=== PATIENT | female | born 1945 | race Caucasian/White ===

== ENCOUNTER 2016-09-18 17:47 | Inpatient (IN) ==
--- NOTE | 2016-09-18 19:07 | Orthopedic History & Physical ---
Orthopedic HPI - HPI Elements left distal other Injury: Yes (fall at senior living 09/14/16) Pain: stabbing, sharp Onset: sudden Radiating: No Severity: moderate Duration: several days How Often Does Pain Occur: constant Aggrevated by: all activity Associated Symptoms: weakness, swelling, no numbness Treatments Tried: pain medications, rest, immobilization X-ray Findings: Other (supracondylar fracture to left distal femur, modest displacement) Recommendation: other (ORIF 09/19/16 with lateral plate and screws) - HPI Comments This is a 71 year old female who is a patient of Dr. Enrique's. Harinder Ortiz has spoken with Dr. Enrique regarding this patient. She had a fall at a senior living 09/14/16. Dr. Enrique was contacted and a mobile 2 view of the distal femur was taken revealing a supra-condylar acute fracture of the left distal femur with modest displacement. Dr. Bermudez transferred here to [facility] in [place] were left hip X-rays were taken. The hip X rays were negative and the patient was returned to the senior living. Unfortunately Dr. Enrique was not contacted about this transfer. As soon as he was made aware he contacted [facility] for further evaluation and management. The patient is presently confused and not able to provide and adequate history. Medications Home Medications Medication Instructions Recorded Confirmed Type Acetaminophen [Tylenol] 2 tab PO Q4HR PRN #1 03/02/15 History Albuterol Sulfate [Proventil Hfa] 2 puff INH Q4H #0 inhaler 03/02/15 History Aspirin 81 mg PO DAILY #0 tab 03/02/15 History Bisacodyl 1 supp RECTALLY DAILY PRN #0 supp 03/02/15 History Carbamide Peroxide [Debrox] 4 drop EACH EAR DAILY PRN #0 drop 03/02/15 History Cetirizine HCl [Zyrtec] 10 mg PO DAILY #0 tab 03/02/15 History Diclofenac Sodium [Voltaren] 1 applic TOP Q6H #1 tub 03/02/15 History Divalproex Sodium [Depakote ER] 1 tab PO BID #0 tab 03/02/15 History Docusate Sodium [Colace] 100 mg PO BID #0 cap 03/02/15 History Famotidine [Pepcid] 20 mg PO DAILY #0 tab 03/02/15 History Fluticasone Nasal [place] [Flonase] 2 spray EA NOSTRIL DAILY #0 ml 03/02/15 History Fluticasone/Salmeterol [Advair 1 puff ORAL INH RTBID #0 inhaler 03/02/15 History 250-50 Diskus] Furosemide [Lasix] 20 mg PO DAILY PRN #0 tab 03/02/15 History Gabapentin 200 mg PO TID #0 cap 03/02/15 History Hydrocodone/Acetaminophen ([place] 1 tab PO Q6H PRN #0 tab 03/02/15 History 5-325 Tablet) Lactulose 10 g PO DAILY #1 ml 03/02/15 History Magnesium Hydroxide [Milk of 50 ml PO Q3DAY PRN #0 03/02/15 History Magnesia] Menthol/Zinc Oxide [Gold [place] 1 applic TOP PRN #1 pwd 03/02/15 History Medicated Body Powd] Multivit,Tx with Iron,Minerals 1 tab PO DAILY #1 03/02/15 History [Therems-M] Nystatin Ointment [Mycostatin] 1 applic TOP TWICEDAILY #1 03/02/15 History Ondansetron HCl [Zofran] 4 mg PO Q6H PRN #0 tab 03/02/15 History Oxybutynin Liq [Ditropan Liq] 5 mg PO TID #0 ml 03/02/15 History Polyethylene Glycol 3350 [Miralax] 17 g PO DAILY PRN #1 bottle 03/02/15 History Promethazine HCl 25 mg PO Q6H PRN #0 03/02/15 History Sennosides/Docusate Sodium [Senna 2 tab PO BID #0 03/02/15 History S Tablet] Spironolactone [Aldactone] 25 mg PO QOD #0 tab 03/02/15 History Tiotropium [place] [Spiriva] 1 puff ORAL INH DAILY #0 inhaler 03/02/15 History Tramadol HCl 100 mg PO TID #0 tab 03/02/15 History Zinc Oxide 1 applic TOP PRN #1 03/02/15 History diphenhydrAMINE HCl [Benadryl] 2 cap PO Q8H PRN #1 cap 03/02/15 History diphenhydrAMINE HCl [Benadryl] 25 mg PO Q8H #1 cap 03/02/15 History guaiFENesin [Guaifenesin] 10 ml PO Q6H PRN #0 03/02/15 History predniSONE [Prednisone] 5 mg PO WB #1 tab 03/02/15 History Allergies Allergy/AdvReac Type Severity Reaction Status Date / Time Cephalosporins Allergy Unknown Unverified 03/01/15 15:30 meperidine Allergy Unknown Unverified 03/01/15 15:29 nitrofurantoin Allergy Unknown Unverified 03/01/15 15:29 Penicillins Allergy Unknown Unverified 03/01/15 15:30 sulfadiazine Allergy Unknown Unverified 03/01/15 15:30 Orthopedic Exam Vital signs: Temp Pulse Resp BP Pulse Ox 98.9 F 86 16 109/66 92 09/18/16 18:48 09/18/16 18:48 09/18/16 18:48 09/18/16 18:48 09/18/16 18:48 - Constitutional General Appearance: Present: alert - Respiratory Exam Present: non-labored - Cardiovascular Exam Present: pedal pulses intact Capillary Refill: < 2-3 Seconds - Abdominal Exam Present: soft - Extremities Exam Present: edema, pulses intact, tenderness (distal left femur). Absent: normal capillary refill - Integumentary Exam Present: pink, warm, dry, intact, bruising - Lymphatic Lymphatic: Absent: adenopathy - Neurological Exam Present: intact to light touch, no deficits - Psychiatric Exam Present: alert, other (confused) Orthopedic Assessment and Plan (1) Fracture of femur, distal, left, closed Status: Acute Qualifiers: Encounter type: initial encounter Assessment and Plan: reassess with Ap/lateral films Dr. Arcos is anticipating surgery tomorrow 09/18/16 with lateral plate and screws NPO after midnight narcotics for pain management. hospitalist for medical management and pre operative clearance Hospital Course Summary Disclaimer: The visit summary below is not to be considered part of the above Progress Note.
[2016-09-18] MEDS ORDERED: DIVALPROEX 125 MG TABLET PO SCH (22:33)
[2016-09-18] MEDS ORDERED: FentaNYL 100 MCG/2 ML INJECTION IVP PRN (22:38)
--- NOTE | 2016-09-18 23:41 | Consult Note ---
Consult Information - Data of Consult Requesting Physician: Florentino Arcos MD Primary Care Provider: Driss Enrique DO Family Provider: Driss Enrique DO - Consult Narrative Reason for consult: medical eval for surgery History of present illness: Please note that the patient was seen via telemedicine with nursing assistance on 09/18/2016 This is a 71 year old female who is a patient of Dr. Enrique's with h/o hypothyroidism, MDD, but no CAD/CHF/CVA/DM2.She had a fall at a long term . Dr. Enrique was contacted and a mobile 2 view of the distal femur was taken revealing a supra-condylar acute fracture of the left distal femur with modest displacement. Dr. Bermudez transferred here to [facility] in [place] were left hip X-rays were taken. The hip X rays were negative and the patient was returned to the long term. Unfortunately Dr. Enrique was not contacted about this transfer. As soon as he was made aware he contacted [facility] for further evaluation and management. The patient recognizes inability to effectively walk the last day with no nausea , sob, CP, abd pain. pain in L hip is 7/10 at rest with planned surgery tomorrow. 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 Other Yes: overactive bladder Osteoarthritis Yes Other Musculoskeletal Yes: joint stiffness, muscle weakness Bipolar Disorder Yes Depression Yes Family History: CAD in mother who is - Social History Smoking status: Unknown if ever smoked Medications Home Medications Medication Instructions Recorded Confirmed Type Acetaminophen [Tylenol] 2 tab PO Q4HR PRN #1 03/02/15 09/18/16 History Aspirin 81 mg PO DAILY #0 tab 03/02/15 09/18/16 History Carbamide Peroxide [Debrox] 4 drop EACH EAR DAILY PRN #0 drop 03/02/15 09/18/16 History Diclofenac Sodium [Voltaren] 1 applic TOP Q6H PRN #1 tub 03/02/15 09/18/16 History Famotidine [Pepcid] 20 mg PO DAILY #0 tab 03/02/15 09/18/16 History Lactulose 10 g PO DAILY PRN #1 ml 03/02/15 09/18/16 History Magnesium Hydroxide [Milk of 30 ml PO Q3DAY PRN #0 03/02/15 09/18/16 History Magnesia] Menthol/Zinc Oxide [Gold [place] 1 applic TOP PRN PRN #1 pwd 03/02/15 09/18/16 History Medicated Body Powd] Multivit,Tx with Iron,Minerals 1 tab PO DAILY #1 03/02/15 09/18/16 History [Therems-M] Ondansetron HCl [Zofran] 4 mg PO Q6H PRN #0 tab 03/02/15 09/18/16 History Polyethylene Glycol 3350 [Miralax] 17 g PO DAILY PRN #1 bottle 03/02/15 History Sennosides/Docusate Sodium [Senna 2 tab PO BID #0 03/02/15 09/18/16 History S Tablet] Spironolactone [Aldactone] 25 mg PO DAILY #0 tab 03/02/15 09/18/16 History Tramadol HCl 100 mg PO QID #0 tab 03/02/15 09/18/16 History guaiFENesin [Guaifenesin] 5 ml PO Q6H PRN #0 03/02/15 09/18/16 History Acetaminophen 325 mg PO Q5H PRN 09/18/16 09/18/16 History Albuterol Inhaler [Ventolin Hfa] 2 puff ORAL INH Q4HR PRN 09/18/16 09/18/16 History Buspirone [Buspar] 5 mg PO BID 09/18/16 09/18/16 History Divalproex Sodium 6 cap PO BID 09/18/16 09/18/16 History Duloxetine [Cymbalta] 1 cap PO DAILY 09/18/16 09/18/16 History Fluticasone Propionate [Flonase 2 spray INH DAILY 09/18/16 09/18/16 History Allergy Relief] Fluticasone Propionate [Flovent 1 puff INH BID 09/18/16 09/18/16 History Diskus] Gabapentin 300 mg PO TID 09/18/16 09/18/16 History Hydrocodone/APAP 10/325 [[place] 1 tab PO Q6H 09/18/16 09/18/16 History 10/325] Levothyroxine Tab [Synthroid] 125 mcg PO ACB 09/18/16 09/18/16 History Loratadine [Claritin] 10 mg PO DAILY PRN 09/18/16 09/18/16 History Mag Hydrox/Aluminum Hyd/Simeth 15 ml PO Q4H PRN 09/18/16 09/18/16 History [Mag-Al Plus Suspension] Menthol [Biofreeze] 1 applic TP TID PRN 09/18/16 09/18/16 History Oxybutynin Chloride [Ditropan Xl] 5 mg PO DAILY 09/18/16 09/18/16 History Umeclidinium Brm/Vilanterol Tr 1 each IH DAILY 09/18/16 09/18/16 History [Anoro Ellipta 62.5-25 Mcg INH] Zinc Oxide [Desitin] 1 applic TP PRN PRN 09/18/16 09/18/16 History Allergies Allergy/AdvReac Type Severity Reaction Status Date / Time Cephalosporins Allergy Unknown Verified 09/18/16 20:03 meperidine Allergy Unknown Verified 09/18/16 20:03 nitrofurantoin Allergy Unknown Verified 09/18/16 20:03 Penicillins Allergy Unknown Verified 09/18/16 20:03 sulfadiazine Allergy Unknown Verified 09/18/16 20:03 Exam Vital Signs: Temp Pulse Resp BP Pulse Ox 98.9 F 84 16 109/66 94 09/18/16 18:48 09/18/16 21:54 09/18/16 21:54 09/18/16 18:48 09/18/16 21:54 Telemetry Rhythm: Sinus Rhythm Height: 1.46 m Weight: 85.9 kg Body Mass Index: 40.1 - Constitutional Present: no acute distress, well nourished, disheveled - Routine HEENT Exam Head: Present: normocephalic, atraumatic Eye: Present: EOMI - Routine Neck Exam Present: full ROM. Absent: JVD - Routine Respiratory Exam Present: CTA bilaterally. Absent: accessory muscle use - Routine Cardiovascular Exam Present: RRR, S1, S2, no murmur - Routine Abdominal Exam Present: soft, normoactive bowel sounds. Absent: tenderness - Routine Skin Exam Comments: no bruising over hip - Routine Neurological Exam Present: alert, oriented X3 - Routine Psychiatric Exam Comments: very circumferential thoughts and at time does not focus well Results - Labs CBC & Chem 7: 09/18/16 19:35 09/18/16 19:35 Assessment and Plan (1) Fracture of femur, distal, left, closed Current visit: Yes Status: Acute 09/18/16 23:43 NPO after MN and IVF with revised cardiac risk index 0 and cleared medically for surgery. Vitamin D. 09/18/16 23:43 (2) Hypothyroid Current visit: Yes Status: Acute 09/18/16 23:43 same meds (3) Bipolar 1 disorder Current visit: Yes Status: Acute 09/18/16 23:44 no active hallucinations, but hard to redirect. same meds. (4) GERD (gastroesophageal reflux disease) Current visit: Yes Status: Acute 09/18/16 23:44 PPI as prior Hospital Course Summary Disclaimer: The visit summary below is not to be considered part of the above Progress Note. Sepsis Assessment - Evaluation Sepsis screening result: No Definite Risk
[2016-09-19] MEDS: NS 1,000 ML IV SCH ×4 (00:39→19:45)
[2016-09-19] MEDS: GABAPENTIN 300 MG CAPSULE PO SCH ×4 (00:41→20:49)
[2016-09-19] MEDS: TRAMADOL 50 MG TABLET PO SCH ×5 (00:42→20:47)
--- NOTE | 2016-09-19 07:34 | Orthopedic Progress Note ---
Date: Subjective/Severity of Illness: Ayala is getting repeat knee X-rays this AM, she is hurting secondary to this. Repeat films were needed for surgical planning. Otherwise, she has no new complaints. Surgery planned for later today. Orthopedic Objective Vital signs: Temp Pulse Resp BP Pulse Ox 98.9 F 74 16 121/70 92 09/19/16 00:45 09/19/16 00:45 09/19/16 00:45 09/19/16 00:45 09/19/16 00:45 Height and Weight: Height 4 ft 9.6 in Weight 189 lb 6.033 oz Body Mass Index 40.1 - Constitutional General Appearance: Present: alert, no acute distress - Respiratory Exam Present: non-labored - Cardiovascular Exam Present: pedal pulses intact Capillary Refill: < 2-3 Seconds - Abdominal Exam Present: soft - Extremities Exam Present: edema, pulses intact, tenderness (distal left femur). Absent: normal capillary refill Comments: left leg externally rotated - Integumentary Exam Present: pink, warm, dry, intact, bruising - Lymphatic Lymphatic: Absent: adenopathy - Neurological Exam Present: intact to light touch, no deficits - Labs Result Diagrams: 09/18/16 19:35 09/18/16 19:35 Abnormal lab results 09/18/16 09/18/16 09/18/16 Range/Units 19:35 19:35 21:00 RBC 3.91 L (4.00-5.20) M/MM3 MPV 9.3 L (9.4-12.4) UM3 Immature Gran % (Auto) 1.5 H (0.0-0.5) % Lymph % (Auto) 18.5 L (23-45) % Eos % (Auto) 7.0 H (0-4) % Eos # 0.6 H (0-0.5) T/MM3 Abs Immat Gran (auto) 0.14 H (0.00-0.03) T/MM3 Carbon Dioxide 31 H (22-30) MEQ/L Ur Specific [place] 1.010 L (1.015-1.025) Urine Ketones Trace A (NEGATIVE) H & H 09/18/16 Range/Units 19:35 Hgb 12.4 (12-16) GM/DL Hct 38.6 (36-46) % Coagulation 09/18/16 Range/Units 19:35 INR 1.09 (0.99-1.21) Orthopedic Assessment and Plan (1) Fracture of femur, distal, left, closed Status: Acute Qualifiers: Encounter type: initial encounter Assessment and Plan: keep NPO. to OR later today. (2) Hypothyroid Status: Acute (3) Bipolar 1 disorder Status: Acute (4) GERD (gastroesophageal reflux disease) Status: Acute Hospital Course Summary Disclaimer: The visit summary below is not to be considered part of the above Progress Note.
[2016-09-19] MEDS: LEVOTHYROXINE 125 MCG TABLET PO SCH (08:07)
--- NOTE | 2016-09-19 08:12 | XRay Report ---
Indication: poor previous views, eval fracture PROCEDURE: XR knee LT 2V: Encounter: Initial Comparison: None Findings: Oblique mildly displaced fracture of the distal femur extending into the lateral femoral condyle. No additional acute fracture or dislocation seen. Moderate joint effusion. Mild bony demineralization. Impression: Closed posttraumatic distal femoral fracture. .
--- NOTE | 2016-09-19 08:13 | XRay Report ---
Indication: pre operative, history COPD PROCEDURE: XR chest 1V: Encounter: Initial Comparison: March 02, 2015 Findings: Findings of emphysema. Increased interstitial markings diffusely without focal lobar consolidation. No pneumothorax. Elevated right hemidiaphragm. Heart size and mediastinal contours are stable. Pulmonary vascularity is indistinct. Numerous surgical clips in the central and upper abdomen. Impression: Emphysema with increased interstitial markings could all relate to chronic lung disease although superimposed mild pulmonary edema cannot be entirely excluded. .
--- NOTE | 2016-09-19 08:13 | XRay Report ---
Indication: fracture PROCEDURE: XR femur LT 2V: Encounter: Initial Comparison: None Findings: Oblique mildly displaced fracture of the distal femur. Avascular process of the femoral head with articular surface collapse and degenerative change in the hip joint. Mild bony demineralization. Impression: Closed posttraumatic distal femoral fracture. .
[2016-09-19] MEDS: MORPHINE SULFATE 2 MG SYRINGE IVP PRN ×2 (08:29→23:56)
--- NOTE | 2016-09-19 08:49 | Progress Note ---
<Maria Teresa Luna V - Last Filed: 09/19/16 08:38> Subjective: Ayala is seen this morning in follow up for medical consultation for medical management. She was admitted under orthopedic care for a left distal femoral fracture. She complains of having moderate pain to the left distal upper leg above the knee. Denies having chest pain, shortness of breath or GI complaints. Nursing reports she had a brief decrease in O2 sats to 88% and she was placed on 1 liter of oxygen. She is in no acute distress. She is noted to have dry mouth and feels that she has denture cream stuck to the top of her mouth. BP 126/62. Objective Vital signs: Temp Pulse Resp BP Pulse Ox 98.4 F 84 16 126/62 88 L 09/19/16 07:32 09/19/16 07:32 09/19/16 07:32 09/19/16 07:32 09/19/16 07:32 Weight: 85.2 kg - Constitutional Present: no acute distress, well nourished, disheveled - Routine HEENT Exam Head: Present: normocephalic Eye: Present: EOMI, PERRL ENT: Present: mucous membranes dry - Routine Respiratory Exam Present: CTA bilaterally - Routine Cardiovascular Exam Present: RRR, S1, S2 - Routine Abdominal Exam Present: soft, normoactive bowel sounds - Routine Extremities Exam Present: tenderness (Left knee, distal upper thigh) - Routine Skin Exam Present: intact, warm - Routine Neurological Exam Present: alert, oriented X3, CN II-XII intact - Routine Psychiatric Exam Present: normal affect, normal thought process Results - Labs CBC & Chem 7: 09/19/16 07:52 09/19/16 07:52 Assessment and Plan (1) Fracture of femur, distal, left, closed Current visit: Yes Status: Acute 09/18/16 23:43 NPO after MN and IVF with revised cardiac risk index 0 and cleared medically for surgery. Vitamin D. 09/18/16 23:43 (2) Hypothyroid Current visit: Yes Status: Acute 09/18/16 23:43 same meds (3) Bipolar 1 disorder Current visit: Yes Status: Acute 09/18/16 23:44 no active hallucinations, but hard to redirect. same meds. (4) GERD (gastroesophageal reflux disease) Current visit: Yes Status: Acute 09/18/16 23:44 PPI as prior (5) Anxiety Current visit: Yes Status: Chronic (6) History of COPD Current visit: Yes Status: Chronic Assessment and Plan: 09/19/16 Stuart Cai appears medically stable for surgery. Did discuss with her the importance of having surgery to relieve her pain and allow appropriate healing. Ongoing orthopedic care as per Dr Reinaldo PATEL. Add Morphine 2 mg IV every 2 hours as needed for pain Currently she is NPO. Will need to resume all PO home meds post-op Monitor oxygen saturations for further episodes of hypoxia. SCD to RLE for DVT prophylaxis Catheter to dependent drainage Will check CBC and BMP tomorrow morning to follow this operative blood counts, renal function. Electrodes. At time of discharge medical care will return to primary care provider, Dr. Enrique Sepsis Assessment - Evaluation Sepsis screening result: No Definite Risk Hospital Course Summary Disclaimer: The visit summary below is not to be considered part of the above Progress Note. Hospital Course: 09/19/16 08:56 Stuart Cai appears medically stable for surgery. Did discuss with her the importance of having surgery to relieve her pain and allow appropriate healing. Ongoing orthopedic care as per Dr Reinaldo PATEL. Add Morphine 2 mg IV every 2 hours as needed for pain Currently she is NPO. Will need to resume all PO home meds post-op Monitor oxygen saturations for further episodes of hypoxia. SCD to RLE for DVT prophylaxis Catheter to dependent drainage Will check CBC and BMP tomorrow morning to follow this operative blood counts, renal function. Electrodes. At time of discharge medical care will return to primary care provider, Dr. Enrique <Carrie Estrada - Last Filed: 09/19/16 14:44> Objective Vital signs: Temp Pulse Resp BP Pulse Ox 99.3 F 78 18 144/74 H 94 09/19/16 14:00 09/19/16 14:00 09/19/16 14:00 09/19/16 14:00 09/19/16 14:00 Results - Labs CBC & Chem 7: 09/19/16 07:52 09/19/16 07:52 Assessment and Plan (1) Fracture of femur, distal, left, closed Current visit: Yes Status: Acute (2) Hypothyroid Current visit: Yes Status: Acute (3) Bipolar 1 disorder Current visit: Yes Status: Acute (4) GERD (gastroesophageal reflux disease) Current visit: Yes Status: Acute (5) Anxiety Current visit: Yes Status: Chronic (6) History of COPD Current visit: Yes Status: Chronic Assessment and Plan: Pt doing well this am, reports she has mild pain but overall she's okay. Denies any cp, sob, n/v/d, f/c. Pt is planning to have surgery later this evening. Pt is medically stable. Ortho is following. Hospital Course Summary Disclaimer: The visit summary below is not to be considered part of the above Progress Note.
[2016-09-19] MEDS: DIVALPROEX 250 MG TABLET PO SCH ×2 (10:57→20:47)
[2016-09-19] MEDS: DULOXETINE 60 MG CAPSULE PO SCH (10:57)
[2016-09-19] MEDS: BUSPIRONE 5 MG TABLET PO SCH ×2 (10:57→20:47)
[2016-09-19] MEDS: FAMOTIDINE 20 MG TABLET PO SCH (10:58)
--- NOTE | 2016-09-19 14:21 | Anesthesia Preoperative Report ---
Anesthesia Preoperative Record - Date and Time Date: 09/19/16 Preoperative Diagnosis: Left Distal Femur Fracture Proposed Procedure: ORIF of left femur NPO Since Date: 09/19/16 NPO Since Time: 00:00 Allergies/Adverse Reactions: Allergies Allergy/AdvReac Type Severity Reaction Status Date / Time Cephalosporins Allergy Unknown Verified 09/18/16 20:03 meperidine Allergy Unknown Verified 09/18/16 20:03 nitrofurantoin Allergy Unknown Verified 09/18/16 20:03 Penicillins Allergy Unknown Verified 09/18/16 20:03 sulfadiazine Allergy Unknown Verified 09/18/16 20:03 - Vital Signs Vital Signs: Temp Pulse Resp BP Pulse Ox 99.3 F 78 18 144/74 H 94 09/19/16 14:00 09/19/16 14:00 09/19/16 14:00 09/19/16 14:00 09/19/16 14:00 Height and Weight: Height 1.46 m Weight 85.2 kg Body Mass Index 40.1 - Medications Inpatient Medications: Current Medications Buspirone HCl (Buspar) 5 mg PO BID [facility] Last Admin: 09/19/16 10:57 Dose: Not Given Divalproex Sodium (Depakote) 750 mg PO BID [facility] Last Admin: 09/19/16 10:57 Dose: Not Given Duloxetine HCl (Cymbalta) 60 mg PO DAILY [facility] Last Admin: 09/19/16 10:57 Dose: Not Given Ergocalciferol (Vitamin D-2) 50,000 unit PO Q7D [facility] Famotidine (Pepcid) 20 mg PO DAILY [facility] Last Admin: 09/19/16 10:58 Dose: Not Given Gabapentin (Neurontin) 300 mg PO TID [facility] Last Admin: 09/19/16 10:57 Dose: Not Given Sodium Chloride (Normal Saline) 1,000 mls @ 100 mls/hr IV .Q10H [facility] Last Admin: 09/19/16 10:55 Dose: 100 mls/hr Levothyroxine Sodium (Synthroid) 125 mcg PO ACB [facility] Last Admin: 09/19/16 08:07 Dose: Not Given Morphine Sulfate (Morphine Sulfate Inj) 2 mg IVP Q2H PRN PRN Reason: Pain Last Admin: 09/19/16 08:29 Dose: 2 mg Tramadol HCl (Ultram) 100 mg PO QID [facility] Last Admin: 09/19/16 14:11 Dose: Not Given Home Medications: Home Medications Medication Instructions Recorded Confirmed Type Acetaminophen [Tylenol] 2 tab PO Q4HR PRN #1 03/02/15 09/18/16 History Aspirin 81 mg PO DAILY #0 tab 03/02/15 09/18/16 History Carbamide Peroxide [Debrox] 4 drop EACH EAR DAILY PRN #0 drop 03/02/15 09/18/16 History Diclofenac Sodium [Voltaren] 1 applic TOP Q6H PRN #1 tub 03/02/15 09/18/16 History Famotidine [Pepcid] 20 mg PO DAILY #0 tab 03/02/15 09/18/16 History Lactulose 10 g PO DAILY PRN #1 ml 03/02/15 09/18/16 History Magnesium Hydroxide [Milk of 30 ml PO Q3DAY PRN #0 03/02/15 09/18/16 History Magnesia] Menthol/Zinc Oxide [Gold Flores 1 applic TOP PRN PRN #1 pwd 03/02/15 09/18/16 History Medicated Body Powd] Multivit,Tx with Iron,Minerals 1 tab PO DAILY #1 03/02/15 09/18/16 History [Therems-M] Ondansetron HCl [Zofran] 4 mg PO Q6H PRN #0 tab 03/02/15 09/18/16 History Polyethylene Glycol 3350 [Miralax] 17 g PO DAILY PRN #1 bottle 03/02/15 History Sennosides/Docusate Sodium [Senna 2 tab PO BID #0 03/02/15 09/18/16 History S Tablet] Spironolactone [Aldactone] 25 mg PO DAILY #0 tab 03/02/15 09/18/16 History Tramadol HCl 100 mg PO QID #0 tab 03/02/15 09/18/16 History guaiFENesin [Guaifenesin] 5 ml PO Q6H PRN #0 03/02/15 09/18/16 History Acetaminophen 325 mg PO Q5H PRN 09/18/16 09/18/16 History Albuterol Inhaler [Ventolin Hfa] 2 puff ORAL INH Q4HR PRN 09/18/16 09/18/16 History Buspirone [Buspar] 5 mg PO BID 09/18/16 09/18/16 History Divalproex Sodium 6 cap PO BID 09/18/16 09/18/16 History Duloxetine [Cymbalta] 1 cap PO DAILY 09/18/16 09/18/16 History Fluticasone Propionate [Flonase 2 spray INH DAILY 09/18/16 09/18/16 History Allergy Relief] Fluticasone Propionate [Flovent 1 puff INH BID 09/18/16 09/18/16 History Diskus] Gabapentin 300 mg PO TID 09/18/16 09/18/16 History Hydrocodone/APAP 10/325 [Normal 1 tab PO Q6H 09/18/16 09/18/16 History 10/325] Levothyroxine Tab [Synthroid] 125 mcg PO ACB 09/18/16 09/18/16 History Loratadine [Claritin] 10 mg PO DAILY PRN 09/18/16 09/18/16 History Mag Hydrox/Aluminum Hyd/Simeth 15 ml PO Q4H PRN 09/18/16 09/18/16 History [Mag-Al Plus Suspension] Menthol [Biofreeze] 1 applic TP TID PRN 09/18/16 09/18/16 History Oxybutynin Chloride [Ditropan Xl] 5 mg PO DAILY 09/18/16 09/18/16 History Umeclidinium Brm/Vilanterol Tr 1 each IH DAILY 09/18/16 09/18/16 History [Anoro Ellipta 62.5-25 Mcg INH] Zinc Oxide [Desitin] 1 applic TP PRN PRN 09/18/16 09/18/16 History Is Patient on Beta Anthony?: No - Medical History Respiratory: Reports: Chronic Obstructive Pulmonary Disease (COPD) Renal/Endocrine: Reports: Thyroid Disease - Surgical History Anesthesia Reactions: None Hx Family Anesthesia Reaction: No History of Motion Sickness: No - Social History Smoking Status: Current every day smoker Hx Chewing Tobacco Use: No Second Hand Exposure: No Substance Use Type: does not use Alcohol Intake Frequency: does not drink - Pertinent Findings Laboratory: CBC and BMP 09/19/16 07:52 09/19/16 07:52 BMP 09/18/16 09/19/16 19:35 07:52 Sodium 140 141 Potassium 4.4 4.3 Chloride 99 101 Carbon Dioxide 31 H 30 BUN 16.0 14.0 Creatinine 0.9 0.8 Glucose 82 78 Calcium 9.7 9.4 Urine // Range/Units 21:00 Urine Color Yellow (YELLOW) Urine Clarity Clear Urine pH 7.0 (5.0-8.0) Ur Specific [place] 1.010 L (1.015-1.025) Urine Protein Negative (NEGATIVE) Urine Glucose (UA) Negative (NEGATIVE) EKG Rhythm: Normal Sinus Rhythm - Physical Exam Respiratory Exam: Present: lungs clear Cardiovascular Exam: Present: regular rate and rhythm - Airway Assessment Mallampati Score: II TMD: 3 Fingerbreadths Neck Extension: fair Teeth: upper dentures, lower dentures Overall Assessment: no airway concerns - ASA ASA Score: 3 - Plan Anesthesia: General Inhalation Gases - Discussion Discussion: Discussed risks/options/alternatives of anesthesia and questions answered. Patient consents. Nursing pain assessment noted. Attestation Statement: Prior to the delivery of any anesthetic medication, I examined the patient, developed the plan, obtained the patient's consent and discussed the risk and benefits of the procedure with the patient/guardian. - Additional Information Seen by Anesthesia: Yes
[2016-09-19] MEDS ORDERED: CLINDAMYCIN PREMIX 900 MG/50 ML BAG IV SCH (15:00)
[2016-09-19] MEDS ORDERED: PROPOFOL 500 MG/50 ML VIAL IV ONE (15:04)
[2016-09-19] MEDS ORDERED: FentaNYL 250 MCG/5 ML INJECTION ONE (15:25)
[2016-09-19] MEDS ORDERED: BUPIV 0.25% 30ml/LIDO 1% 30ml MIXTURE IR ONE (16:42)
[2016-09-19] MEDS ORDERED: DESFLURANE 240ml LIQUID IH ONE (16:49)
--- NOTE | 2016-09-19 17:03 | Operative Note ---
- Procedure Date of Admission: 09/19/16 Side: left Preoperative Diagnosis: other (supracondylar distal femoral fracture) Postoperative Diagnosis: Same as preoperative diagnosis. Operation: Closed reduction and cephalomedullary nailing of left supracondylar distal femoral fracture Surgeon: Francisco Arcos MD Proposal Analyst: AMANDA Muhammad Complications: None. Anesthesia: General Inhalation Gases Estimated Blood Loss: See Anesthesia Record. Fluids: Please see Anesthesia Record. Description of Procedure: Mrs. Crisostomo in her left knee were identified and marked in the preoperative holding area. I reviewed with her the indications of surgery as well as risks and benefits and possible complications. Also discussed expected postoperative care. She agreed with this plan. She is brought back to the operating suite and placed supine on the operating table she is placed under general anesthesia and intubated. The left lower joint was prepped and draped in the normal sterile fashion. Fluoroscopic imaging was used throughout the case. Timeout was performed. A trying was placed underneath the knee and fluoroscopic images confirmed a good reduction with just minimal traction on the leg. Bone quality was poor and there is more arthritic changes in the knee. Incision was made anteriorly from the patella to the tibial tubercle. A small medial parapatellar arthrotomy was then performed. The distal femur was opened over a guide dora. I circumferentially reamed to 15 and placed a short 14 mm retrograde supracondylar nail that was 170 mm length. I then used the aiming arm to place 4 distal screws. Aiming arm and then again used to place 2 locking screws proximally from lateral to medial. Again her bone quality was poor we are very happy with reduction in the hardware placement. The arthrotomy wound was thoroughly irrigated with normal saline. I did place and then. All the other poke hole also thoroughly irrigated. The arthrotomy was closed with 2-0 Vicryl followed by running 4-0 Monocryl and skin followed by Dermabond. The poke holes were closed with 2-0 Vicryl and Dermabond. I then took x-rays of her ankle because of complaints of ankle pain before surgery. No fracture identified but she did In the mortise laterally with inversion of the ankle. Difficult to tell if this is acute or chronic issue. We'll make a judgment call clinically after she wakes how to treat her ankle but probably with a brace. She then awoke from general anesthesia and was extubated and taken to the recovery room under the care of anesthesia she tolerated this procedure well and there were no complications.
[2016-09-19] MEDS ORDERED: ONDANSETRON 4 MG/2 ML INJECTION IVP PRN ×2 (17:10→18:54)
[2016-09-19] MEDS ORDERED: METOCLOPRAMIDE 10mg/2ml INJECTION IVP PRN (17:10)
[2016-09-19] MEDS ORDERED: ONDANSETRON 4 MG/2 ML INJECTION ONE (17:13)
[2016-09-19] MEDS ORDERED: DEXAMETHASONE 4 MG/ML INJECTION ONE (17:13)
[2016-09-19] MEDS ORDERED: BUPIVACAINE 0.25% (2.5mg/ml) PF 30ml INJECTION ONE (17:31)
[2016-09-19] MEDS ORDERED: BUPIVACAINE 0.25%/EPI 1:200,000 30ml SDV ONE (17:31)
[2016-09-19] MEDS ORDERED: LIDOCAINE 1% (10mg/ml) 30ml SDV INJ ONE (17:31)
[2016-09-19] MEDS: HYDROMORPHONE 2 MG/ML INJECTION IVP PRN ×2 (18:01→18:15)
[2016-09-19] MEDS ORDERED: SENNA + DOCUSATE TABLET PO PRN (18:54)
[2016-09-19] MEDS ORDERED: NOZIN NASAL SWAB NAS ONE (18:54)
--- NOTE | 2016-09-19 18:55 | Anesthesia Postoperative Note ---
- Date and Time Date: 09/19/16 Time: 18:55 - Status Patient Participated in Evaluation: Patient Participated in Person Vital Signs: Temp Pulse Resp BP Pulse Ox 96.8 F 86 20 129/67 96 09/19/16 17:23 09/19/16 17:55 09/19/16 17:55 09/19/16 17:55 09/19/16 17:55 Respiratory Function: Airway Patent Cardiovascular Function: Regular Pulse EKG Rhythm: Normal Sinus Rhythm Mental Status: Alert and Oriented Pain Intensity: 4 Hydration: Taking PO Fluids Complications During Recover: None Apparent - Follow-Up Instructions Instructions: Per Surgeon
[2016-09-19] MEDS: ENOXAPARIN 40 MG/0.4 ML INJECTION SQ SCH (19:47)
[2016-09-19] MEDS: NOZIN NASAL SWAB NAS SCH (20:46)
[2016-09-19] MEDS: CLINDAMYCIN PREMIX 900 MG/50 ML BAG IV SCH (22:52)
[2016-09-20] MEDS: SALMETEROL ORAL INH SCH ×3 (01:27→19:51)
[2016-09-20] MEDS: FLUTICASONE ORAL INH SCH ×3 (01:27→19:51)
[2016-09-20] MEDS: MORPHINE SULFATE 2 MG SYRINGE IVP PRN ×2 (02:18→07:18)
[2016-09-20] MEDS: NOZIN NASAL SWAB NAS SCH ×3 (02:19→21:12)
[2016-09-20] MEDS: CLINDAMYCIN PREMIX 900 MG/50 ML BAG IV SCH ×2 (04:39→09:13)
[2016-09-20] MEDS: NS 1,000 ML IV SCH ×3 (04:39→18:10)
[2016-09-20] MEDS: LEVOTHYROXINE 125 MCG TABLET PO SCH (06:08)
[2016-09-20] MEDS ORDERED: ERGOCALCIFEROL 50,000 UNIT CAPSULE PO SCH (09:00)
[2016-09-20] MEDS: BUSPIRONE 5 MG TABLET PO SCH ×2 (09:12→21:13)
[2016-09-20] MEDS: DULOXETINE 60 MG CAPSULE PO SCH (09:13)
[2016-09-20] MEDS: FAMOTIDINE 20 MG TABLET PO SCH (09:14)
[2016-09-20] MEDS: TRAMADOL 50 MG TABLET PO SCH ×4 (09:14→21:14)
[2016-09-20] MEDS: FLUTICASONE NASAL SPRAY 50mcg EA NOSTRIL SCH (09:14)
[2016-09-20] MEDS: DIVALPROEX 250 MG TABLET PO SCH ×2 (09:14→21:13)
[2016-09-20] MEDS: GABAPENTIN 300 MG CAPSULE PO SCH ×3 (09:14→21:13)
--- NOTE | 2016-09-20 09:19 | Remote Fluorsocopy Report ---
Indication: DISTAL FEMUR FX PROCEDURE: RF knee LT 3 view: Encounter: Initial Comparison: Left knee radiographs dated September 19, 2016 Findings: Eight fluoroscopic spot images are submitted for interpretation. Images show open reduction and internal fixation of the distal femur fracture with placement of an intramedullary nail and multiple interlocking screws. Alignment of the fracture fragments appears stable. Impression: Fluoroscopy as above. Fluoroscopy time is 27.6 seconds. Fluoroscopy dose is 2990 mRad. .
--- NOTE | 2016-09-20 09:32 | Remote Fluorsocopy Report ---
Indication: LEFT ANKLE PAIN PROCEDURE: RF ankle LT 3 view: Encounter: Initial Comparison: None Findings: Three fluoroscopic spot images show anterior and lateral projections of the left ankle. Impression: Fluoroscopy as above. Fluoroscopy time is 207.6 seconds. Fluoroscopy dose is 2990 mRad. .
--- NOTE | 2016-09-20 10:19 | Progress Note ---
<Maria Teresa Luna V - Last Filed: 09/20/16 10:05> Subjective: Ayala seen this morning in follow-up, status post left distal femur repair. She is alert and oriented, speech is somewhat difficulty to understand as she does not have dentures in. She complains of moderate pain to left upper leg. Polar pack is intact. Hairston cath intact. Objective Vital signs: Temp Pulse Resp BP Pulse Ox 98.8 F 114 H 18 132/81 98 09/20/16 07:39 09/20/16 07:39 09/20/16 09:32 09/20/16 07:39 09/20/16 07:39 Weight: 85.3 kg - Constitutional Present: no acute distress, well nourished, disheveled - Routine HEENT Exam Eye: Present: EOMI, PERRL ENT: Present: mucous membranes dry - Routine Respiratory Exam Present: CTA bilaterally - Routine Cardiovascular Exam Present: RRR, S1, S2 - Routine Abdominal Exam Present: soft, normoactive bowel sounds, non distended, non tender - Routine Extremities Exam Comments: Left thigh/knee pain- Postop - Routine Back/Spine/Pelvis Exam Back/Spine: Present: full ROM - Routine Skin Exam Present: intact, warm - Routine Neurological Exam Present: alert, oriented X3, CN II-XII intact Results - Labs CBC & Chem 7: 09/20/16 04:28 09/20/16 04:28 Assessment and Plan (1) Fracture of femur, distal, left, closed Current visit: Yes Status: Acute 09/18/16 23:43 NPO after MN and IVF with revised cardiac risk index 0 and cleared medically for surgery. Vitamin D. 09/18/16 23:43 (2) Hypothyroid Current visit: Yes Status: Acute 09/18/16 23:43 same meds (3) Bipolar 1 disorder Current visit: Yes Status: Acute 09/18/16 23:44 no active hallucinations, but hard to redirect. same meds. (4) GERD (gastroesophageal reflux disease) Current visit: Yes Status: Acute 09/18/16 23:44 PPI as prior (5) Anxiety Current visit: Yes Status: Chronic (6) History of COPD Current visit: Yes Status: Chronic Assessment and Plan: 09/20/16 Overall is doing well today as it is day 1 post-op Consult to PT and OT for assistance with strengthening and mobility. Hopeful to get patient up out of bed today. Continue to work on pain control, hopeful to move away from IV pain medications. Continue with tramadol. CBC and BMP today are stable. Senna plus scheduled, will add MiraLAX daily for postoperative bowel motivation. Can likely work on bladder retraining with Hairston catheter later today. Depending on how patient does getting up. Lovenox subcutaneous daily for postoperative anticoagulation. She will likely need this for 30 days. Ortho management as per Dr Arcos. Overall medically stable Will discuss further plan with attending, Dr Estrada. Sepsis Assessment - Evaluation Sepsis screening result: No Definite Risk Hospital Course Summary Disclaimer: The visit summary below is not to be considered part of the above Progress Note. Hospital Course: 09/19/16 08:56 Medically Ayala appears medically stable for surgery. Did discuss with her the importance of having surgery to relieve her pain and allow appropriate healing. Ongoing orthopedic care as per Dr Arcos and Amando PATEL. Add Morphine 2 mg IV every 2 hours as needed for pain Currently she is NPO. Will need to resume all PO home meds post-op Monitor oxygen saturations for further episodes of hypoxia. SCD to RLE for DVT prophylaxis Catheter to dependent drainage Will check CBC and BMP tomorrow morning to follow this operative blood counts, renal function. Electrodes. At time of discharge medical care will return to primary care provider, Dr. Enrique 09/20/16 Overall is doing well today as it is day 1 post-op Consult to PT and OT for assistance with strengthening and mobility. Hopeful to get patient up out of bed today. Continue to work on pain control, hopeful to move away from IV pain medications. Continue with tramadol. CBC and BMP today are stable. Senna plus scheduled, will add MiraLAX daily for postoperative bowel motivation. Can likely work on bladder retraining with Hairston catheter later today. Depending on how patient does getting up. Lovenox subcutaneous daily for postoperative anticoagulation. She will likely need this for 30 days. Ortho management as per Dr Arcos. Overall medically stable Will discuss further plan with attending, Dr Estrada. <Carrie Estrada - Last Filed: 09/20/16 11:01> Objective Vital signs: Temp Pulse Resp BP Pulse Ox 98.8 F 114 H 18 132/81 98 09/20/16 07:39 09/20/16 07:39 09/20/16 09:32 09/20/16 07:39 09/20/16 07:39 Results - Labs CBC & Chem 7: 09/20/16 04:28 09/20/16 04:28 Assessment and Plan (1) Fracture of femur, distal, left, closed Current visit: Yes Status: Acute (2) Hypothyroid Current visit: Yes Status: Acute (3) Bipolar 1 disorder Current visit: Yes Status: Acute (4) GERD (gastroesophageal reflux disease) Current visit: Yes Status: Acute (5) Anxiety Current visit: Yes Status: Chronic (6) History of COPD Current visit: Yes Status: Chronic Assessment and Plan: Pt reports doing ok post op day 1. Pt difficult to understand but reports she is not very hungry but will try to eat. PT/OT on board for therapy post surgery. Most home meds have been re-started. Bowel regimen to prevent ileus. Plan on taking hairston out today. On lovenox for DVT ppx. Ortho team following. Medically stable. Cont. to follow. Hospital Course Summary Disclaimer: The visit summary below is not to be considered part of the above Progress Note.
[2016-09-20] MEDS ORDERED: LACTULOSE 20 GM/30 ML ORAL LIQUID PO PRN (10:57)
[2016-09-20] MEDS: POLYETHYL GLYCOL 3350 17gm PACKET PO SCH (11:30)
--- NOTE | 2016-09-20 13:02 | Orthopedic Progress Note ---
Date: Subjective/Severity of Illness: Ayala is feeling okay this afternoon. Pain is manageable. She is S/P IM nail 09/19/[address] Arcos for a left supracondylar fracture. Otherwise, she has no new complaints. She doesn't have much of an appetite. PT has been working with her and she sat at the bedside today. She apparently didn't want to participate in PT today. She has been mildy tachycardic. Orthopedic Objective Vital signs: Temp Pulse Resp BP Pulse Ox 99.1 F 116 H 24 139/87 95 09/20/16 11:38 09/20/16 11:38 09/20/16 11:33 09/20/16 11:38 09/20/16 11:38 Height and Weight: Height 4 ft 9.6 in Weight 188 lb 0.869 oz Body Mass Index 40.1 - Constitutional General Appearance: Present: alert, no acute distress - Respiratory Exam Present: non-labored - Cardiovascular Exam Capillary Refill: < 2-3 Seconds - Abdominal Exam Present: soft - Extremities Exam Present: tenderness (Left knee, distal upper thigh) - Surgical Site left distal other Incision: clean, dry, intact - Integumentary Exam Present: pink, warm, dry, intact, bruising - Lymphatic Lymphatic: Absent: adenopathy - Neurological Exam Present: intact to light touch, no deficits - Labs Result Diagrams: 09/20/16 04:28 09/20/16 04:28 Abnormal lab results 09/20/16 Range/Units 04:28 RBC 3.82 L (4.00-5.20) M/MM3 MPV 9.3 L (9.4-12.4) UM3 Immature Gran % (Auto) 1.6 H (0.0-0.5) % Neut % (Auto) 82.2 H (33-66) % Lymph % (Auto) 9.7 L (23-45) % Lymph # 0.8 L (1-4.8) T/MM3 Abs Immat Gran (auto) 0.13 H (0.00-0.03) T/MM3 H & H 09/18/16 09/19/16 09/20/16 Range/Units 19:35 07:52 04:28 Hgb 12.4 12.0 12.0 (12-16) GM/DL Hct 38.6 37.6 37.6 (36-46) % Coagulation 09/18/16 Range/Units 19:35 INR 1.09 (0.99-1.21) Orthopedic Assessment and Plan (1) Fracture of femur, distal, left, closed Status: Acute Qualifiers: Encounter type: initial encounter Assessment and Plan: S/P IM nail by Dr. Arcos 09/19/16 She will require Lovenox 40mg SQ Q day for 30 days post op WBAT with transfers only. Avoid pivoting and twisting. Continue pain and bowel management Tachycardia will be as per the medical team. (2) Hypothyroid Status: Acute (3) Bipolar 1 disorder Status: Acute (4) GERD (gastroesophageal reflux disease) Status: Acute (5) Anxiety Status: Chronic (6) History of COPD Status: Chronic Hospital Course Summary Disclaimer: The visit summary below is not to be considered part of the above Progress Note. Hospital Course: 09/19/16 08:56 Medically Ayala appears medically stable for surgery. Did discuss with her the importance of having surgery to relieve her pain and allow appropriate healing. Ongoing orthopedic care as per Dr Arcos and Amando PATEL. Add Morphine 2 mg IV every 2 hours as needed for pain Currently she is NPO. Will need to resume all PO home meds post-op Monitor oxygen saturations for further episodes of hypoxia. SCD to RLE for DVT prophylaxis Catheter to dependent drainage Will check CBC and BMP tomorrow morning to follow this operative blood counts, renal function. Electrodes. At time of discharge medical care will return to primary care provider, Dr. Enrique 09/20/16 Overall is doing well today as it is day 1 post-op Consult to PT and OT for assistance with strengthening and mobility. Hopeful to get patient up out of bed today. Continue to work on pain control, hopeful to move away from IV pain medications. Continue with tramadol. CBC and BMP today are stable. Senna plus scheduled, will add MiraLAX daily for postoperative bowel motivation. Can likely work on bladder retraining with Freire catheter later today. Depending on how patient does getting up. Lovenox subcutaneous daily for postoperative anticoagulation. She will likely need this for 30 days. Ortho management as per Dr Arcos. Overall medically stable Will discuss further plan with attending, Dr Estrada.
[2016-09-20] MEDS: ENOXAPARIN 40 MG/0.4 ML INJECTION SQ SCH (21:12)
[2016-09-21] MEDS: NS 1,000 ML IV SCH ×2 (04:22→13:59)
[2016-09-21] MEDS: NOZIN NASAL SWAB NAS SCH ×4 (04:23→22:35)
[2016-09-21] MEDS: LEVOTHYROXINE 125 MCG TABLET PO SCH (06:18)
[2016-09-21] MEDS: MORPHINE SULFATE 2 MG SYRINGE IVP PRN (06:48)
[2016-09-21] MEDS: ALBUTEROL 2.5mg/3ml (0.083%) NEB AEROSOL PRN ×2 (07:14→14:35)
--- NOTE | 2016-09-21 08:38 | Orthopedic Progress Note ---
Date: Subjective/Severity of Illness: No new complaints today. Pain appears to be better in the left knee. Orthopedic Objective Vital signs: Temp Pulse Resp BP Pulse Ox 96.1 F L 103 H 18 133/76 92 09/21/16 07:47 09/21/16 07:47 09/21/16 07:47 09/21/16 07:47 09/21/16 07:47 Height and Weight: Height 4 ft 9.6 in Weight 85.3 kg Body Mass Index 40.1 - Constitutional General Appearance: Present: alert, no acute distress - Respiratory Exam Present: non-labored - Cardiovascular Exam Present: pedal pulses intact Capillary Refill: < 2-3 Seconds - Integumentary Exam Present: pink, warm, dry, intact, bruising - Neurological Exam Present: intact to light touch, no deficits - Psychiatric Exam Present: alert - Wound Management Left Leg Primary Dressing: Gauze Pad - Labs Result Diagrams: 09/21/16 04:56 09/21/16 04:56 Abnormal lab results 09/21/16 Range/Units 04:56 RBC 3.58 L (4.00-5.20) M/MM3 Hgb 11.3 L (12-16) GM/DL Hct 35.6 L (36-46) % MPV 9.0 L (9.4-12.4) UM3 Immature Gran % (Auto) 1.9 H (0.0-0.5) % Neut % (Auto) 75.2 H (33-66) % Lymph % (Auto) 12.7 L (23-45) % Abs Immat Gran (auto) 0.18 H (0.00-0.03) T/MM3 H & H 09/18/16 09/19/16 09/20/16 Range/Units 19:35 07:52 04:28 Hgb 12.4 12.0 12.0 (12-16) GM/DL Hct 38.6 37.6 37.6 (36-46) % 09/21/16 Range/Units 04:56 Hgb 11.3 L (12-16) GM/DL Hct 35.6 L (36-46) % Coagulation 09/18/16 Range/Units 19:35 INR 1.09 (0.99-1.21) Orthopedic Assessment and Plan (1) Fracture of femur, distal, left, closed Status: Acute Qualifiers: Encounter type: initial encounter Assessment and Plan: She is stable from orthopedic standpoint. Recommend continuing physical therapy for transfers only. Continue DVT prophylaxis. Transfer back to [facility] when ready from a physical therapy and medical standpoint. (2) Hypothyroid Status: Acute (3) Bipolar 1 disorder Status: Acute (4) GERD (gastroesophageal reflux disease) Status: Acute (5) Anxiety Status: Chronic (6) History of COPD Status: Chronic Hospital Course Summary Disclaimer: The visit summary below is not to be considered part of the above Progress Note. Hospital Course: 09/19/16 08:56 Medically Ayala appears medically stable for surgery. Did discuss with her the importance of having surgery to relieve her pain and allow appropriate healing. Ongoing orthopedic care as per Dr Arcos and Amando PATEL. Add Morphine 2 mg IV every 2 hours as needed for pain Currently she is NPO. Will need to resume all PO home meds post-op Monitor oxygen saturations for further episodes of hypoxia. SCD to RLE for DVT prophylaxis Catheter to dependent drainage Will check CBC and BMP tomorrow morning to follow this operative blood counts, renal function. Electrodes. At time of discharge medical care will return to primary care provider, Dr. Enrique 09/20/16 Overall is doing well today as it is day 1 post-op Consult to PT and OT for assistance with strengthening and mobility. Hopeful to get patient up out of bed today. Continue to work on pain control, hopeful to move away from IV pain medications. Continue with tramadol. CBC and BMP today are stable. Senna plus scheduled, will add MiraLAX daily for postoperative bowel motivation. Can likely work on bladder retraining with Freire catheter later today. Depending on how patient does getting up. Lovenox subcutaneous daily for postoperative anticoagulation. She will likely need this for 30 days. Ortho management as per Dr Arcos. Overall medically stable Will discuss further plan with attending, Dr Estrada.
[2016-09-21] MEDS: TRAMADOL 50 MG TABLET PO SCH ×4 (09:35→22:25)
[2016-09-21] MEDS: FAMOTIDINE 20 MG TABLET PO SCH (09:35)
[2016-09-21] MEDS: DULOXETINE 60 MG CAPSULE PO SCH (09:35)
[2016-09-21] MEDS: DIVALPROEX 250 MG TABLET PO SCH ×2 (09:36→22:27)
[2016-09-21] MEDS: FLUTICASONE NASAL SPRAY 50mcg EA NOSTRIL SCH (09:36)
[2016-09-21] MEDS: GABAPENTIN 300 MG CAPSULE PO SCH ×3 (09:36→22:28)
[2016-09-21] MEDS: BUSPIRONE 5 MG TABLET PO SCH ×2 (09:36→22:27)
[2016-09-21] MEDS: POLYETHYL GLYCOL 3350 17gm PACKET PO SCH (09:36)
[2016-09-21] MEDS: FLUTICASONE ORAL INH SCH ×2 (09:51→19:17)
[2016-09-21] MEDS: SALMETEROL ORAL INH SCH ×2 (09:51→19:17)
--- NOTE | 2016-09-21 11:38 | Progress Note ---
<Maria Teresa Luan V - Last Filed: 09/21/16 11:31> Subjective: Ayala is seen this morning in follow-up consultation. She is resting in bed and states she does not want to be bothered, however, does agree to a brief exam. Denies feeling short of breath or having chest pain. Complains of ongoing discomfort that is mild to the left lower extremity. Fully catheter remains intact. Nursing reports that patient is somewhat resistance to most cares. BP 133/76. Objective Vital signs: Temp Pulse Resp BP Pulse Ox 96.1 F L 103 H 18 133/76 92 09/21/16 07:47 09/21/16 07:47 09/21/16 07:47 09/21/16 07:47 09/21/16 07:47 Weight: 89.3 kg - Constitutional Present: no acute distress, well nourished, disheveled - Routine HEENT Exam Head: Present: normocephalic, atraumatic Eye: Present: EOMI, PERRL ENT: Present: mucous membranes moist - Routine Respiratory Exam Present: CTA bilaterally - Routine Cardiovascular Exam Present: RRR, S1, S2, tachycardia (apical heart rate 100 on auscultation) - Routine Abdominal Exam Present: soft, normoactive bowel sounds - Routine Extremities Exam Comments: Post-op pain to Left lower ext - Routine Skin Exam Present: intact, warm - Routine Neurological Exam Present: alert, oriented X3, CN II-XII intact - Routine Psychiatric Exam Present: normal affect, normal thought process Results - Labs CBC & Chem 7: 09/21/16 04:56 09/21/16 04:56 Assessment and Plan (1) Fracture of femur, distal, left, closed Current visit: Yes Status: Acute 09/18/16 23:43 NPO after MN and IVF with revised cardiac risk index 0 and cleared medically for surgery. Vitamin D. 09/18/16 23:43 (2) Hypothyroid Current visit: Yes Status: Acute 09/18/16 23:43 same meds (3) Bipolar 1 disorder Current visit: Yes Status: Acute 09/18/16 23:44 no active hallucinations, but hard to redirect. same meds. (4) GERD (gastroesophageal reflux disease) Current visit: Yes Status: Acute 09/18/16 23:44 PPI as prior (5) Anxiety Current visit: Yes Status: Chronic (6) History of COPD Current visit: Yes Status: Chronic Assessment and Plan: 09/21 Discussed plan of care and orders with nursing staff. Planning to have physical therapy come and assist patient to get up in the chair prior to lunch. Will attempt a bath at that time. Will initiate bladder retraining via Freire catheter Reviewed laboratory studies. Postoperative hemoglobin remained stable at 11.3. Working on weaning down oxygen as patient is not routinely on oxygen at home Continue to encourage patient to work with PT and OT for ongoing strengthening and postoperative function. Lovenox subcutaneous daily for DVT prophylaxis Sepsis Assessment - Evaluation Sepsis screening result: No Definite Risk Hospital Course Summary Disclaimer: The visit summary below is not to be considered part of the above Progress Note. Hospital Course: 09/19/16 08:56 Medically Ayala appears medically stable for surgery. Did discuss with her the importance of having surgery to relieve her pain and allow appropriate healing. Ongoing orthopedic care as per Dr Arcos and Amando PATEL. Add Morphine 2 mg IV every 2 hours as needed for pain Currently she is NPO. Will need to resume all PO home meds post-op Monitor oxygen saturations for further episodes of hypoxia. SCD to RLE for DVT prophylaxis Catheter to dependent drainage Will check CBC and BMP tomorrow morning to follow this operative blood counts, renal function. Electrodes. At time of discharge medical care will return to primary care provider, Dr. Enrique 09/20/16 Overall is doing well today as it is day 1 post-op Consult to PT and OT for assistance with strengthening and mobility. Hopeful to get patient up out of bed today. Continue to work on pain control, hopeful to move away from IV pain medications. Continue with tramadol. CBC and BMP today are stable. Senna plus scheduled, will add MiraLAX daily for postoperative bowel motivation. Can likely work on bladder retraining with Freire catheter later today. Depending on how patient does getting up. Lovenox subcutaneous daily for postoperative anticoagulation. She will likely need this for 30 days. Ortho management as per Dr Arcos. Overall medically stable Will discuss further plan with attending, Dr Estrada. <Mehreen Hope Last Filed: 09/21/16 16:58> Objective Vital signs: Temp Pulse Resp BP Pulse Ox 97.0 F 109 H 16 107/65 96 09/21/16 15:38 09/21/16 15:38 09/21/16 15:38 09/21/16 15:38 09/21/16 15:38 Results - Labs CBC & Chem 7: 09/21/16 04:56 09/21/16 04:56 Assessment and Plan (1) Fracture of femur, distal, left, closed Current visit: Yes Status: Acute (2) Hypothyroid Current visit: Yes Status: Acute (3) Bipolar 1 disorder Current visit: Yes Status: Acute (4) GERD (gastroesophageal reflux disease) Current visit: Yes Status: Acute (5) Anxiety Current visit: Yes Status: Chronic (6) History of COPD Current visit: Yes Status: Chronic Assessment and Plan: I have independently evaluated and examined this patient. I reviewed the chart, the patient's history, and the ENGAGEMENT MGR's documented findings as above. We discussed and formulated the assessment and plan as above with additions as below: Mrs. Iglesias complains of pain in her leg but indicates the medication helped somewhat. Nursing reports that she became lightheaded sitting on the edge of the bed and was unable to tolerate standing. She denied dyspnea. The patient has rambling speech with difficulty responding to direct question. Respirations are nonlabored with decreased breath sounds throughout but no rhonchi or wheezing. Cardiac rhythm is regular. Chest x-ray from admission reviewed by myself demonstrating changes of COPD and chronic increased interstitial lung markings. Low-grade tachycardia present-unclear if pain related. Oral intake has been poor since surgery with IV fluids continuing currently. Poor exercise tolerance, [facility] next [facility]. Hospital Course Summary Disclaimer: The visit summary below is not to be considered part of the above Progress Note.
[2016-09-21] MEDS: ENOXAPARIN 40 MG/0.4 ML INJECTION SQ SCH (19:09)
[2016-09-22] MEDS: NS 1,000 ML IV SCH ×2 (00:05→16:50)
[2016-09-22] MEDS: MORPHINE SULFATE 2 MG SYRINGE IVP PRN (00:36)
[2016-09-22] MEDS: NOZIN NASAL SWAB NAS SCH ×3 (06:32→21:59)
[2016-09-22] MEDS: LEVOTHYROXINE 125 MCG TABLET PO SCH (06:32)
--- NOTE | 2016-09-22 08:02 | Orthopedic Progress Note ---
Date: Subjective/Severity of Illness: Mrs. Crisostomo is doing well this morning without any new complaints. Orthopedic Objective Vital signs: Temp Pulse Resp BP Pulse Ox 97.8 F 86 16 103/61 93 09/22/16 07:43 09/22/16 07:43 09/22/16 07:43 09/22/16 07:43 09/22/16 07:43 Height and Weight: Height 4 ft 9.6 in Weight 89 kg Body Mass Index 40.1 - Constitutional General Appearance: Present: alert, no acute distress - Respiratory Exam Present: non-labored - Cardiovascular Exam Capillary Refill: < 2-3 Seconds - Surgical Site left distal other Incision: clean, dry, intact - Integumentary Exam Present: pink, warm, dry, intact, bruising - Lymphatic Lymphatic: Absent: adenopathy - Neurological Exam Present: intact to light touch, no deficits - Wound Management Left Leg Primary Dressing: Gauze Pad - Labs Result Diagrams: 09/21/16 04:56 09/21/16 04:56 H & H 09/18/16 09/19/16 09/20/16 Range/Units 19:35 07:52 04:28 Hgb 12.4 12.0 12.0 (12-16) GM/DL Hct 38.6 37.6 37.6 (36-46) % 09/21/16 Range/Units 04:56 Hgb 11.3 L (12-16) GM/DL Hct 35.6 L (36-46) % Coagulation 09/18/16 Range/Units 19:35 INR 1.09 (0.99-1.21) Orthopedic Assessment and Plan (1) Fracture of femur, distal, left, closed Status: Acute Qualifiers: Encounter type: initial encounter Assessment and Plan: Continue weightbearing as tolerated for transfers only on the left leg. Continue current pain management. Anticipate discharge to [place] tomorrow. (2) Hypothyroid Status: Acute (3) Bipolar 1 disorder Status: Acute (4) GERD (gastroesophageal reflux disease) Status: Acute (5) Anxiety Status: Chronic (6) History of COPD Status: Chronic Hospital Course Summary Disclaimer: The visit summary below is not to be considered part of the above Progress Note. Hospital Course: 09/19/16 08:56 Medically Ayala appears medically stable for surgery. Did discuss with her the importance of having surgery to relieve her pain and allow appropriate healing. Ongoing orthopedic care as per Dr Arcos and Amando PATEL. Add Morphine 2 mg IV every 2 hours as needed for pain Currently she is NPO. Will need to resume all PO home meds post-op Monitor oxygen saturations for further episodes of hypoxia. SCD to RLE for DVT prophylaxis Catheter to dependent drainage Will check CBC and BMP tomorrow morning to follow this operative blood counts, renal function. Electrodes. At time of discharge medical care will return to primary care provider, Dr. Enrique 09/20/16 Overall is doing well today as it is day 1 post-op Consult to PT and OT for assistance with strengthening and mobility. Hopeful to get patient up out of bed today. Continue to work on pain control, hopeful to move away from IV pain medications. Continue with tramadol. CBC and BMP today are stable. Senna plus scheduled, will add MiraLAX daily for postoperative bowel motivation. Can likely work on bladder retraining with Freire catheter later today. Depending on how patient does getting up. Lovenox subcutaneous daily for postoperative anticoagulation. She will likely need this for 30 days. Ortho management as per Dr Arcos. Overall medically stable Will discuss further plan with attending, Dr Estrada.
[2016-09-22] MEDS: FLUTICASONE ORAL INH SCH ×3 (08:15→19:50)
[2016-09-22] MEDS: SALMETEROL ORAL INH SCH ×3 (08:15→19:50)
[2016-09-22] MEDS: TRAMADOL 50 MG TABLET PO SCH ×4 (08:39→21:57)
[2016-09-22] MEDS: GABAPENTIN 300 MG CAPSULE PO SCH ×3 (08:40→20:08)
[2016-09-22] MEDS: DIVALPROEX 250 MG TABLET PO SCH ×2 (08:40→20:09)
[2016-09-22] MEDS: FAMOTIDINE 20 MG TABLET PO SCH (08:40)
[2016-09-22] MEDS: BUSPIRONE 5 MG TABLET PO SCH ×2 (08:40→20:08)
[2016-09-22] MEDS: DULOXETINE 60 MG CAPSULE PO SCH (08:40)
[2016-09-22] MEDS: FLUTICASONE NASAL SPRAY 50mcg EA NOSTRIL SCH (08:41)
[2016-09-22] MEDS: POLYETHYL GLYCOL 3350 17gm PACKET PO SCH (08:41)
[2016-09-22] MEDS ORDERED: CALCIUM CARBONATE Chewable 500mg TABLET PO PRN (10:45)
[2016-09-22] MEDS ORDERED: FUROSEMIDE 20 MG/2 ML INJECTION IVP ONE (11:19)
[2016-09-22] MEDS ORDERED: POLYETHYL GLYCOL 3350 17gm PACKET PO PRN (11:20)
[2016-09-22] MEDS ORDERED: MORPHINE SULFATE 2 MG SYRINGE IVP PRN (11:22)
--- NOTE | 2016-09-22 11:28 | Progress Note ---
<ManuelitoDoreen Roxane - Last Filed: 09/22/16 11:24> Subjective: Ayala is seen today in follow up. She is sleepy- has to be woken up during exam. Quickly returns to sleep. Denies pain. Is currently on oxygen; reports that she does not wear O2 at home. Chart is reviewed. Objective Vital signs: Temp Pulse Resp BP Pulse Ox 97.8 F 86 20 103/61 93 09/22/16 07:43 09/22/16 07:43 09/22/16 08:15 09/22/16 07:43 09/22/16 08:15 Weight: 89 kg - Constitutional Present: no acute distress, well nourished, morbidly obese, somnolent - Routine HEENT Exam Head: Present: normocephalic, atraumatic Eye: Present: EOMI, PERRL ENT: Present: mucous membranes moist - Routine Respiratory Exam Present: decreased breath sounds, crackles (right base), distant breath sounds, diminished air movement - Routine Cardiovascular Exam Present: RRR, S1, S2, murmur (3/6, harsh aortic murmur; No JVD or pulsation) - Routine Abdominal Exam Present: soft, normoactive bowel sounds, non distended, non tender Comments: Morbidly obese - Routine Exam Comments: Freire cath in place- phani urine. Freire clamped for bladder training. - Routine Extremities Exam Present: edema. Absent: cyanosis - Routine Musculoskeletal Exam Musculoskeletal: limited range of motion - Routine Skin Exam Present: intact, dry, warm - Routine Neurological Exam Obtunded, arousable. Results - Labs CBC & Chem 7: 09/21/16 04:56 09/21/16 04:56 Assessment and Plan (1) Fracture of femur, distal, left, closed Current visit: Yes Status: Acute 09/18/16 23:43 NPO after MN and IVF with revised cardiac risk index 0 and cleared medically for surgery. Vitamin D. 09/18/16 23:43 (2) Hypothyroid Current visit: Yes Status: Acute 09/18/16 23:43 same meds (3) Bipolar 1 disorder Current visit: Yes Status: Acute 09/18/16 23:44 no active hallucinations, but hard to redirect. same meds. (4) GERD (gastroesophageal reflux disease) Current visit: Yes Status: Acute 09/18/16 23:44 PPI as prior (5) Anxiety Current visit: Yes Status: Chronic (6) History of COPD Current visit: Yes Status: Chronic (7) Fluid overload Current visit: Yes Status: Acute (8) Cardiac murmur Current visit: Yes Status: Acute DVT Prophylaxis: Lovenox GI Prophylaxis: other (Pepcid) Resuscitation Status: Full Code Assessment and Plan: 09/22/16- *Left femur fx s/p repair- per Dr. Arcos PT/OT. Will likely need ongoing therapy on DC. *Fluid overload, Cardiac murmur- Suspect some underlying HF. Stop IVF. Will obtain echo in AM. Lasix x 1 now- low dose as she is a bit hypotensive. She is on aldactone at home- hold for now and monitor. *Morbid Obesity, COPD- Now requiring O2. Obtain ABG due to altered mentation. Change nebs to scheduled. Increase activity, encourage IS. Resume home inhalers. *Urinary frequency- Resume Ditropan. Freire to be DC'd today. *Mood DO/BPAD. Continue home medications. May need to hold Buspar if sedation remains an issue. *Sedation- Assess ABG. Change Morphine to Q 6 hours PRN. She is on scheduled tramadol. Hold off on restarting [place] for now until more awake. Labs ordered for in AM. Sepsis Assessment - Evaluation Sepsis screening result: No Definite Risk Hospital Course Summary Disclaimer: The visit summary below is not to be considered part of the above Progress Note. Hospital Course: 09/19/16 08:56 Medically Ayala appears medically stable for surgery. Did discuss with her the importance of having surgery to relieve her pain and allow appropriate healing. Ongoing orthopedic care as per Dr Arcos and Amando PATEL. Add Morphine 2 mg IV every 2 hours as needed for pain Currently she is NPO. Will need to resume all PO home meds post-op Monitor oxygen saturations for further episodes of hypoxia. SCD to RLE for DVT prophylaxis Catheter to dependent drainage Will check CBC and BMP tomorrow morning to follow this operative blood counts, renal function. Electrodes. At time of discharge medical care will return to primary care provider, Dr. Enrique 09/20/16 Overall is doing well today as it is day 1 post-op Consult to PT and OT for assistance with strengthening and mobility. Hopeful to get patient up out of bed today. Continue to work on pain control, hopeful to move away from IV pain medications. Continue with tramadol. CBC and BMP today are stable. Senna plus scheduled, will add MiraLAX daily for postoperative bowel motivation. Can likely work on bladder retraining with Freire catheter later today. Depending on how patient does getting up. Lovenox subcutaneous daily for postoperative anticoagulation. She will likely need this for 30 days. Ortho management as per Dr Arcos. Overall medically stable Will discuss further plan with attending, Dr Estrada. 09/22/16 11:37 *Left femur fx s/p repair- per Dr. Arcos PT/OT. Will likely need ongoing therapy on DC. *Fluid overload, Cardiac murmur- Suspect some underlying HF. Stop IVF. Will obtain echo in AM. Lasix x 1 now- low dose as she is a bit hypotensive. She is on aldactone at home- hold for now and monitor. *Morbid Obesity, COPD- Now requiring O2. Obtain ABG due to altered mentation. Change nebs to scheduled. Increase activity, encourage IS. Resume home inhalers. *Urinary frequency- Resume Ditropan. Freire to be DC'd today. *Mood DO/BPAD. Continue home medications. May need to hold Buspar if sedation remains an issue. *Sedation- Assess ABG. Change Morphine to Q 6 hours PRN. She is on scheduled tramadol. Hold off on restarting [place] for now until more awake. Labs ordered for in AM. <Mehreen Hope - Last Filed: 09/22/16 15:35> Objective Vital signs: Temp Pulse Resp BP Pulse Ox 98 F 88 16 104/63 90 09/22/16 12:00 09/22/16 12:00 09/22/16 12:00 09/22/16 12:00 09/22/16 12:00 Results - Labs CBC & Chem 7: 09/21/16 04:56 09/21/16 04:56 Assessment and Plan (1) Fracture of femur, distal, left, closed Current visit: Yes Status: Acute (2) Hypothyroid Current visit: Yes Status: Acute (3) Bipolar 1 disorder Current visit: Yes Status: Acute (4) GERD (gastroesophageal reflux disease) Current visit: Yes Status: Acute (5) Anxiety Current visit: Yes Status: Chronic (6) History of COPD Current visit: Yes Status: Chronic (7) Fluid overload Current visit: Yes Status: Acute (8) Cardiac murmur Current visit: Yes Status: Acute Assessment and Plan: I have independently evaluated and examined this patient. I reviewed the chart, the patient's history, and the UNEMPLOYMENT EXAMINER's documented findings as above. We discussed and formulated the assessment and plan as above with additions as below: Mrs. Iglesias was sleeping in a chair when seen. Nursing reports that she was unable to transfer with assistance and it required use of 6-year-old with to transfer into the chair. Patient complained of minor nausea but would arouse only briefly to mumble a little bit and then fell back to sleep. She's continued to have small stools and appetite is poor per nursing report. Oxygen has titrated down to 1 L and the patient denied dyspnea. Morbidly obese female, drowsy but will respond to voice. Respirations nonlabored but decreased air flow and decreased breath sounds throughout. Regular rhythm with harsh murmur as previously described. Nursing reports patient was alert and interactive earlier in the day. Reassess labs in the morning, blood gas pending-discussed with respiratory therapy. Weight up 3.4 kg from admission. Hospital Course Summary Disclaimer: The visit summary below is not to be considered part of the above Progress Note.
[2016-09-22] MEDS: ENOXAPARIN 40 MG/0.4 ML INJECTION SQ SCH (18:33)
[2016-09-22] MEDS: ALBUTEROL 2.5mg/3ml (0.083%) NEB AEROSOL SCH ×2 (19:50→20:56)
[2016-09-22] MEDS: SENNA + DOCUSATE TABLET PO SCH (20:12)
[2016-09-23] MEDS: NOZIN NASAL SWAB NAS SCH (06:25)
[2016-09-23] MEDS: LEVOTHYROXINE 125 MCG TABLET PO SCH (06:25)
[2016-09-23] MEDS: ALBUTEROL 2.5mg/3ml (0.083%) NEB AEROSOL SCH (08:51)
--- NOTE | 2016-09-23 08:55 | Orthopedic Progress Note ---
Date: Subjective/Severity of Illness: Mrs. Crisostomo is doing well this morning without any new complaints. Orthopedic Objective Vital signs: Temp Pulse Resp BP Pulse Ox 97.9 F 88 18 96/63 95 09/23/16 08:06 09/23/16 08:06 09/23/16 08:06 09/23/16 08:06 09/23/16 08:06 Height and Weight: Height 4 ft 9.6 in Weight 198 lb 6.656 oz Body Mass Index 40.1 - Constitutional General Appearance: Present: alert, no acute distress - Respiratory Exam Present: non-labored - Cardiovascular Exam Capillary Refill: < 2-3 Seconds - Abdominal Exam Present: soft - Extremities Exam Present: edema. Absent: cyanosis - Surgical Site left distal other Incision: clean, dry, intact - Integumentary Exam Present: pink, warm, dry, intact, bruising - Lymphatic Lymphatic: Absent: adenopathy - Neurological Exam Present: intact to light touch, no deficits - Psychiatric Exam Present: alert - Wound Management Left Leg Primary Dressing: Gauze Pad - Labs Result Diagrams: 09/23/16 04:12 09/23/16 04:12 Abnormal lab results 09/22/16 09/23/16 09/23/16 Range/Units 15:34 04:12 04:12 RBC 2.86 L (4.00-5.20) M/MM3 Hgb 8.9 L D (12-16) GM/DL Hct 28.4 L D (36-46) % MPV 9.1 L (9.4-12.4) UM3 Immature Gran % (Auto) 2.2 H (0.0-0.5) % Lymph % (Auto) 22.1 L (23-45) % Eos % (Auto) 10.7 H (0-4) % Eos # 1.0 H (0-0.5) T/MM3 Abs Immat Gran (auto) 0.20 H (0.00-0.03) T/MM3 ABG pCO2 48 H (34-45) MMHG ABG pO2 51 L (80-100) MMHG ABG HCO3 33 H (22-26) MEQ/L ABG Total CO2 34.1 H (23-27) MEQ/L ABG O2 Saturation 87.0 L (95.0-98.0) % ABG Base Excess 7.3 H (-2.0-2.0) MMOL/L Albumin 2.7 L (3.5-5.0) G/DL H & H 09/18/16 09/19/16 09/20/16 Range/Units 19:35 07:52 04:28 Hgb 12.4 12.0 12.0 (12-16) GM/DL Hct 38.6 37.6 37.6 (36-46) % 09/21/16 09/23/16 Range/Units 04:56 04:12 Hgb 11.3 L 8.9 L D (12-16) GM/DL Hct 35.6 L 28.4 L D (36-46) % Coagulation 09/18/16 Range/Units 19:35 INR 1.09 (0.99-1.21) Orthopedic Assessment and Plan (1) Fracture of femur, distal, left, closed Status: Acute Qualifiers: Encounter type: initial encounter Assessment and Plan: s/p left IM nail. Orthopaedically ready for discharge, would appreciate medical clearance as well. 30 days Lovenox follow up in 2 weeks WBAT for transfers, no pivoting or twisting (2) Hypothyroid Status: Acute (3) Bipolar 1 disorder Status: Acute (4) GERD (gastroesophageal reflux disease) Status: Acute (5) Anxiety Status: Chronic (6) History of COPD Status: Chronic (7) Fluid overload Status: Acute (8) Cardiac murmur Status: Acute Hospital Course Summary Disclaimer: The visit summary below is not to be considered part of the above Progress Note. Hospital Course: 09/19/16 08:56 Medically Ayala appears medically stable for surgery. Did discuss with her the importance of having surgery to relieve her pain and allow appropriate healing. Ongoing orthopedic care as per Dr Arcos and Amando PATEL. Add Morphine 2 mg IV every 2 hours as needed for pain Currently she is NPO. Will need to resume all PO home meds post-op Monitor oxygen saturations for further episodes of hypoxia. SCD to RLE for DVT prophylaxis Catheter to dependent drainage Will check CBC and BMP tomorrow morning to follow this operative blood counts, renal function. Electrodes. At time of discharge medical care will return to primary care provider, Dr. Enrique 09/20/16 Overall is doing well today as it is day 1 post-op Consult to PT and OT for assistance with strengthening and mobility. Hopeful to get patient up out of bed today. Continue to work on pain control, hopeful to move away from IV pain medications. Continue with tramadol. CBC and BMP today are stable. Senna plus scheduled, will add MiraLAX daily for postoperative bowel motivation. Can likely work on bladder retraining with Freire catheter later today. Depending on how patient does getting up. Lovenox subcutaneous daily for postoperative anticoagulation. She will likely need this for 30 days. Ortho management as per Dr Arcos. Overall medically stable Will discuss further plan with attending, Dr Estrada. 09/22/16 11:37 *Left femur fx s/p repair- per Dr. Arcos PT/OT. Will likely need ongoing therapy on DC. *Fluid overload, Cardiac murmur- Suspect some underlying HF. Stop IVF. Will obtain echo in AM. Lasix x 1 now- low dose as she is a bit hypotensive. She is on aldactone at home- hold for now and monitor. *Morbid Obesity, COPD- Now requiring O2. Obtain ABG due to altered mentation. Change nebs to scheduled. Increase activity, encourage IS. Resume home inhalers. *Urinary frequency- Resume Ditropan. Freire to be DC'd today. *Mood DO/BPAD. Continue home medications. May need to hold Buspar if sedation remains an issue. *Sedation- Assess ABG. Change Morphine to Q 6 hours PRN. She is on scheduled tramadol. Hold off on restarting [place] for now until more awake. Labs ordered for in AM.
[2016-09-23] MEDS ORDERED: TIOTROPIUM 18mcg/cap HANDIHALER ORAL INH SCH (09:00)
[2016-09-23] MEDS ORDERED: NON-FORMULARY MEDICATION 1 EACH EACH (Umeclidinium Brm/Vilanterol Tr [Anoro Ellipta 62.5-2 IH SCH (09:00)
[2016-09-23] MEDS ORDERED: OXYBUTYNIN XL 5 MG TABLET PO SCH (09:00)
--- NOTE | 2016-09-23 09:34 | Discharge Summary ---
Orthopedic Discharge Info Date of admission: 09/18/16 18:12 Primary care physician: Driss Enrique DO Attending Physician: Florentino Arcos MD Consults: 09/18/16 19:02 Physician Consult [CONS] Routine Consulting Provider: Carrie Estrada Reason For Exam: medical mangament Ordering Provider has Notified Light Fixture Servicer: No 09/19/16 10:33 Doctor [Physician Consult] [CONS] Routine Consulting Provider: [facility] Reason For Exam: CONT CARE Ordering Provider has Notified Light Fixture Servicer: Yes 09/22/16 17:57 [facility] Consult [CONS] Routine Reason for consultation: Open sore in crack of buttocks - Discharge Diagnosis (1) Fracture of femur, distal, left, closed Qualifiers: Encounter type: initial encounter Status: Acute (2) Hypothyroid Status: Acute (3) Bipolar 1 disorder Status: Acute (4) GERD (gastroesophageal reflux disease) Status: Acute (5) Anxiety Status: Chronic (6) History of COPD Status: Chronic (7) Fluid overload Status: Acute (8) Cardiac murmur Status: Acute - Laboratory Result Diagrams: 09/23/16 04:12 09/23/16 04:12 Laboratory: Abnormal lab results 09/22/16 09/23/16 09/23/16 Range/Units 15:34 04:12 04:12 RBC 2.86 L (4.00-5.20) M/MM3 Hgb 8.9 L D (12-16) GM/DL Hct 28.4 L D (36-46) % MPV 9.1 L (9.4-12.4) UM3 Immature Gran % (Auto) 2.2 H (0.0-0.5) % Lymph % (Auto) 22.1 L (23-45) % Eos % (Auto) 10.7 H (0-4) % Eos # 1.0 H (0-0.5) T/MM3 Abs Immat Gran (auto) 0.20 H (0.00-0.03) T/MM3 ABG pCO2 48 H (34-45) MMHG ABG pO2 51 L (80-100) MMHG ABG HCO3 33 H (22-26) MEQ/L ABG Total CO2 34.1 H (23-27) MEQ/L ABG O2 Saturation 87.0 L (95.0-98.0) % ABG Base Excess 7.3 H (-2.0-2.0) MMOL/L Albumin 2.7 L (3.5-5.0) G/DL H & H 09/18/16 09/19/16 09/20/16 Range/Units 19:35 07:52 04:28 Hgb 12.4 12.0 12.0 (12-16) GM/DL Hct 38.6 37.6 37.6 (36-46) % 09/21/16 09/23/16 Range/Units 04:56 04:12 Hgb 11.3 L 8.9 L D (12-16) GM/DL Hct 35.6 L 28.4 L D (36-46) % Coagulation 09/18/16 Range/Units 19:35 INR 1.09 (0.99-1.21) Orthopedic Discharge HPI - HPI Elements left distal other Pain: stabbing, sharp Onset: sudden Radiating: No Severity: moderate Duration: several days How Often Does Pain Occur: constant Aggrevated by: all activity Associated Symptoms: weakness, swelling, no numbness Treatments Tried: pain medications, rest, immobilization X-ray Findings: Other (supracondylar fracture to left distal femur, modest displacement) Recommendation: other (ORIF 09/19/16 with lateral plate and screws) - HPI Comments This is a 71 year old female who is a patient of Dr. Enrique's. Harinder Ortiz has spoken with Dr. Enrique regarding this patient. She [facility] a [facility]. Dr. Enrique was contacted and a mobile 2 view of the distal femur was taken revealing a supra-condylar acute fracture of the left distal femur with modest displacement. Dr. Bermudez transferred here to [facility] in [place] were left hip X-rays were taken. The hip X rays were negative and the patient was returned to the fpc. Unfortunately Dr. Enrique was not contacted about this transfer. As soon as he was made aware he contacted [facility] for further evaluation and management. Orthopedic Hospital Course Hospital course: 09/23/16 09:32 Mrs. Iglesias unterwent IM nail by Dr. Arcos on 09/19/16 to align and stabilize her distal supracondylar femur fracture. Post operatively she received 24 hours worth of prophylatic antibiotics. Lovenox 40mg SQ Q day was provided for DVT prevention as well as SCD's. She was mobilized early with Physical Therapy. She progress slowly secondary to poor overall conditioning. She was allowed WBAT for transfers with no pivoting or twisting. The hospitalist service was consulted for her overall medical care. They did note a heart murmur and some fluid overload which was treated with Lasix and evaluated with and Echo. All services involved felt she was stable for transfer on 09/23/16. 09/23/16 09:33 09/23/16 09:34 09/23/16 09:38 - Postoperative Anemia patient received IVF, labs monitored daily, no intervention required, HGB drop- acceptable Discharge Plan - Med Rec/Dispo Referrals/Follow Up: Florentino Arcos MD [Physician] - 2 Weeks (please call [phone] to arrange a post op visit with Dr. Arcos on or around 2 weeks.) Additional Instructions: Keep incisions clean and dry. You may be WBAT for transfers. Avoid pivoting or twisting. Prescriptions: New Enoxaparin Sodium [Lovenox] 40 mg SQ Q24H #30 syr Continue Polyethylene Glycol 3350 [Miralax] 17 g PO DAILY PRN #1 bottle PRN Reason: CONSTIPATION Acetaminophen [Tylenol] 2 tab PO Q4HR PRN #1 PRN Reason: PAIN Carbamide Peroxide [Debrox] 4 drop EACH EAR DAILY PRN #0 drop PRN Reason: PRN ORDERS Lactulose 10 g PO DAILY PRN #1 ml PRN Reason: Constipation Famotidine [Pepcid] 20 mg PO DAILY #0 tab Spironolactone [Aldactone] 25 mg PO DAILY #0 tab Tramadol HCl 100 mg PO QID #0 tab Magnesium Hydroxide [Milk of Magnesia] 30 ml PO Q3DAY PRN #0 PRN Reason: PRN ORDERS Ondansetron HCl [Zofran] 4 mg PO Q6H PRN #0 tab PRN Reason: PRN ORDERS Gabapentin 300 mg PO TID Hydrocodone/APAP 10/325 [[place] 10/325] 1 tab PO Q6H Oxybutynin Chloride [Ditropan Xl] 5 mg PO DAILY Acetaminophen 325 mg PO Q5H PRN PRN Reason: Pain Fluticasone Propionate [Flovent Diskus] 1 puff INH BID Fluticasone Propionate [Flonase Allergy Relief] 2 spray INH DAILY Buspirone [Buspar] 5 mg PO BID Levothyroxine Tab [Synthroid] 125 mcg PO ACB Umeclidinium Brm/Vilanterol Tr [Anoro Ellipta 62.5-25 Mcg INH] 1 each IH DAILY Loratadine [Claritin] 10 mg PO DAILY PRN PRN Reason: Allergy Symptoms Duloxetine [Cymbalta] 1 cap PO DAILY guaiFENesin [Guaifenesin] 5 ml PO Q6H PRN #0 PRN Reason: Cough Menthol/Zinc Oxide [Gold Flores Medicated Body Powd] 1 applic TOP PRN PRN #1 pwd PRN Reason: red Diclofenac Sodium [Voltaren] 1 applic TOP Q6H PRN #1 tub PRN Reason: Pain Multivit,Tx with Iron,Minerals [Therems-M] 1 tab PO DAILY #1 Sennosides/Docusate Sodium [Senna S Tablet] 2 tab PO BID #0 Albuterol Inhaler [Ventolin Hfa] 2 puff ORAL INH Q4HR PRN PRN Reason: COPD Divalproex Sodium 6 cap PO BID Zinc Oxide [Desitin] 1 applic TP PRN PRN PRN Reason: Rash Menthol [Biofreeze] 1 applic TP TID PRN PRN Reason: Pain Mag Hydrox/Aluminum Hyd/Simeth [Mag-Al Plus Suspension] 15 ml PO Q4H PRN PRN Reason: GI UPSET Discontinued Aspirin 81 mg PO DAILY #0 tab - Disposition 01 Discharged Home, Self-Care
--- NOTE | 2016-09-23 10:10 | Progress Note ---
<Maria Teresa Luna V - Last Filed: 09/23/16 11:30> Subjective: Ayala is seen this morning in follow up. She is working with therapy this morning doing transfers from bed to chair. She is in no acute distress. She continues on 2 liters of oxygen by nasal canula. She refused a examination currently, stating that she fine and doesn't want to be bothered. Freire cath remains intact. Objective Vital signs: Temp Pulse Resp BP Pulse Ox 97.9 F 88 22 96/63 94 09/23/16 08:06 09/23/16 08:06 09/23/16 08:52 09/23/16 08:06 09/23/16 08:52 Weight: 90 kg - Constitutional Present: no acute distress, well nourished, morbidly obese, somnolent - Routine HEENT Exam Head: Present: normocephalic, atraumatic Eye: Present: EOMI, PERRL - Routine Extremities Exam Present: pulses intact Comments: pain on left leg- Post-op - Routine Back/Spine/Pelvis Exam Back/Spine: Present: full ROM - Routine Skin Exam Present: intact, warm - Routine Neurological Exam Present: alert, oriented X3, CN II-XII intact, moving all extremities Results - Labs CBC & Chem 7: 09/23/16 04:12 09/23/16 04:12 - ABG Interpretation ABG results: 09/22/16 15:34 ABG pH 7.440 ABG pCO2 48 H ABG pO2 51 L ABG HCO3 33 H ABG Total CO2 34.1 H ABG O2 Saturation 87.0 L ABG Base Excess 7.3 H Assessment and Plan (1) Fracture of femur, distal, left, closed Status: Acute 09/18/16 23:43 NPO after MN and IVF with revised cardiac risk index 0 and cleared medically for surgery. Vitamin D. 09/18/16 23:43 (2) Hypothyroid Status: Acute 09/18/16 23:43 same meds (3) Bipolar 1 disorder Status: Acute 09/18/16 23:44 no active hallucinations, but hard to redirect. same meds. (4) GERD (gastroesophageal reflux disease) Status: Acute 09/18/16 23:44 PPI as prior (5) Anxiety Status: Chronic (6) History of COPD Status: Chronic (7) Fluid overload Status: Acute (8) Cardiac murmur Status: Acute Assessment and Plan: 09/23 Asked nursing staff to to discontinue Freire catheter as patient has received bladder training for the last 48 hours. Also asked staff to wean down oxygen as previously ordered. Discussed case with orthopedic team as well as case management. [facility] Recommend follow-up with primary care provider, Dr. Enrique in the next 1-2 weeks. Echocardiogram and further cardiac workup can be followed in the outpatient setting. Sepsis Assessment - Evaluation Sepsis screening result: No Definite Risk Hospital Course Summary Disclaimer: The visit summary below is not to be considered part of the above Progress Note. Hospital Course: 09/19/16 08:56 Medically Ayala appears medically stable for surgery. Did discuss with her the importance of having surgery to relieve her pain and allow appropriate healing. Ongoing orthopedic care as per Dr Arcos and Amando PATEL. Add Morphine 2 mg IV every 2 hours as needed for pain Currently she is NPO. Will need to resume all PO home meds post-op Monitor oxygen saturations for further episodes of hypoxia. SCD to RLE for DVT prophylaxis Catheter to dependent drainage Will check CBC and BMP tomorrow morning to follow this operative blood counts, renal function. Electrodes. At time of discharge medical care will return to primary care provider, Dr. Enrique 09/20/16 Overall is doing well today as it is day 1 post-op Consult to PT and OT for assistance with strengthening and mobility. Hopeful to get patient up out of bed today. Continue to work on pain control, hopeful to move away from IV pain medications. Continue with tramadol. CBC and BMP today are stable. Senna plus scheduled, will add MiraLAX daily for postoperative bowel motivation. Can likely work on bladder retraining with Freire catheter later today. Depending on how patient does getting up. Lovenox subcutaneous daily for postoperative anticoagulation. She will likely need this for 30 days. Ortho management as per Dr Arcos. Overall medically stable Will discuss further plan with attending, Dr Estrada. 09/22/16 11:37 *Left femur fx s/p repair- per Dr. Arcos PT/OT. Will likely need ongoing therapy on DC. *Fluid overload, Cardiac murmur- Suspect some underlying HF. Stop IVF. Will obtain echo in AM. Lasix x 1 now- low dose as she is a bit hypotensive. She is on aldactone at home- hold for now and monitor. *Morbid Obesity, COPD- Now requiring O2. Obtain ABG due to altered mentation. Change nebs to scheduled. Increase activity, encourage IS. Resume home inhalers. *Urinary frequency- Resume Ditropan. Freire to be DC'd today. *Mood DO/BPAD. Continue home medications. May need to hold Buspar if sedation remains an issue. *Sedation- Assess ABG. Change Morphine to Q 6 hours PRN. She is on scheduled tramadol. Hold off on restarting [place] for now until more awake. Labs ordered for in AM. <Mehreen Hope - Last Filed: 09/23/16 15:24> Objective Vital signs: Temp Pulse Resp BP Pulse Ox 97.9 F 93 20 107/72 96 09/23/16 11:57 09/23/16 11:57 09/23/16 11:57 09/23/16 11:57 09/23/16 11:57 Results - Labs CBC & Chem 7: 09/23/16 04:12 09/23/16 04:12 - ABG Interpretation ABG results: 09/22/16 15:34 ABG pH 7.440 ABG pCO2 48 H ABG pO2 51 L ABG HCO3 33 H ABG Total CO2 34.1 H ABG O2 Saturation 87.0 L ABG Base Excess 7.3 H Assessment and Plan (1) Fracture of femur, distal, left, closed Status: Acute (2) Hypothyroid Status: Acute (3) Bipolar 1 disorder Status: Acute (4) GERD (gastroesophageal reflux disease) Status: Acute (5) Anxiety Status: Chronic (6) History of COPD Status: Chronic (7) Fluid overload Status: Acute (8) Cardiac murmur Status: Acute Assessment and Plan: I have independently evaluated and examined this patient. I reviewed the chart, the patient's history, and the LAPPING MACHINE TENDER's documented findings as above. We discussed and formulated the assessment and plan as above with additions as below: Mrs. Iglesias was up in a chair when seen. She complained of feeling cold and requested an additional blanket to cover her shoulders. She also complained of hurting all over and wanted to go back to bed. Nursing reported that she's only been up in a short period of time. She transferred with slide board today and was unable to bear weight again. Patient is irritable but did respond to questions and while I was present agreed that she would return to [facility] to continue therapy. Breath sounds are diminished but respirations nonlabored. Cardiac rhythm is regular. Hemoglobin is slightly lower today consistent with blood loss associated with fracture/surgical repair. Iron sulfate 325 mg daily added to discharge medications with prescription provided to nursing prior to discharge. Stable for return to senior living to continue recovery in that setting. Hospital Course Summary Disclaimer: The visit summary below is not to be considered part of the above Progress Note.
[2016-09-23] MEDS: TRAMADOL 50 MG TABLET PO SCH (10:26)
[2016-09-23] MEDS: DULOXETINE 60 MG CAPSULE PO SCH (10:26)
[2016-09-23] MEDS: BUSPIRONE 5 MG TABLET PO SCH (10:26)
[2016-09-23] MEDS: DIVALPROEX 250 MG TABLET PO SCH (10:27)
[2016-09-23] MEDS: FAMOTIDINE 20 MG TABLET PO SCH (10:28)
[2016-09-23] MEDS: GABAPENTIN 300 MG CAPSULE PO SCH (10:28)
[2016-09-23] MEDS: FLUTICASONE NASAL SPRAY 50mcg EA NOSTRIL SCH (10:28)
[2016-09-23] MEDS: SENNA + DOCUSATE TABLET PO SCH ×2 (10:31→10:33)
[2016-09-23] MEDS: POLYETHYL GLYCOL 3350 17gm PACKET PO SCH (10:31)
[2016-09-23] MEDS: SALMETEROL ORAL INH SCH (10:48)
[2016-09-23] MEDS: FLUTICASONE ORAL INH SCH (10:48)
--- NOTE | 2016-09-23 11:25 | Extended Care Facility Orders ---
Admission Orders Admit to:: [facility] Allergies/Adverse Reactions: Allergies Cephalosporins Allergy (Unknown, Verified 09/18/16 20:03) meperidine Allergy (Unknown, Verified 09/18/16 20:03) nitrofurantoin Allergy (Unknown, Verified 09/18/16 20:03) Penicillins Allergy (Unknown, Verified 09/18/16 20:03) sulfadiazine Allergy (Unknown, Verified 09/18/16 20:03) Admitting Diagnosis: Left Distal Femur Fracture Admitting Physician: Florentino Arcos MD Attending Physician: Florentino Arcos MD Code Status: Full Code Anticiapted Length of Stay: 30 days or less Rehab Potential: fair Rehab Prognosis: fair Diet: 09/21/16 Lunch Regular Diet [DIET] Diet Modifications: May use Facility Protocol or Standing Orders: Yes May have flu vaccine: Yes Evaluations/Treatment: PT (WBAT for transfers only. No pivoting or twisting.), OT (WBAT for transfers only. No pivoting or twisting.) [facility] Certification: I certify that SNF services are required to be given on an Inpatient basis because of the patients need for assisted care on a continuing basis for the condition(s) for which he/she received inpatient hospital services prior to his/her transfer to the SNF. SNF inpatient care is necessary for the following reasons Indication for [facility]: Postop Assessment Care - Additional Information In Event of Arrest: Start CPR,call 911,send patient to the ER Referrals: Florentino Arcos MD [Physician] - 2 Weeks (please call [phone] to arrange a post op visit with Dr. Arcos on or around 2 weeks.) Additional Orders: REGULAR DIET. WEIGHT BEARING TOLERATED.
--- NOTE | 2016-09-23 17:52 | Echocardiogram ---
DATE OF PROCEDURE 09/23/2016 REFERRING PHYSICIAN Francisco Arcos MD INDICATION This is a two-dimensional echo with spectral Doppler, color-flow, and M-mode. It was obtained in a patient with murmur. DESCRIPTION OF PROCEDURE Left atrial dimension is normal. Left ventricular end-diastolic dimension is normal. Left ventricular wall thickness is normal. LV systolic function is normal with ejection fraction of 54%. Right atrium is normal. Right ventricle is normal. Aortic root dimension is normal. Mitral valve is morphologically normal. Aortic valve shows fibrocalcific changes with restriction on opening motion. Transaortic velocities are increased with peak velocity of 2.78 meters per second with peak gradient of 31 and mean gradient of 18. Aortic valve area is calculated at 1.19 cm2. There is no aortic insufficiency. Tricuspid valve shows trace of tricuspid regurgitation with normal estimated pulmonary artery systolic pressure of 32. Pulmonary valve shows no pulmonary insufficiency. There is no pericardial effusion. IMPRESSION 1. Normal LV systolic function with ejection fraction of 54%. 2. Moderate aortic stenosis with a valve area of 1.19 cm2. 3. Trace of tricuspid regurgitation with normal estimated pulmonary artery systolic pressure of 32. MTDD
== END 2016-09-23 13:14 | DRG 482 ==
LOC: PREOBSVTOIN 18:11 → SRG 18:12
PROVIDERS: ADMIT Orthopaedic Surgery; ATTEND Orthopaedic Surgery